=== PATIENT | female | born 1935 | race Caucasian/White ===

== ENCOUNTER 2017-08-16 12:39 | Inpatient (IN) | payer MEDICARE, OTHER ==
[2017-08-16] VITALS: BP 125/69
[~2017-08-16] VITALS: Ht 157.5 cm; Wt 59.0 kg
[~2017-08-16 12:39] MED LIST: ATOR10TA PO; CYAN10006 IM; LEVO75TA7 PO; MECL12.584 PO; METO5TAB98 PO; MIDO5TAB PO; NITR100C11 PO; RIVA20TA PO; VERA180T7 PO
[2017-08-16] MEDS ORDERED: normal saline 1000ml 1,000 ML IV ONE (12:45)
[2017-08-16 13:17] LABS: BASOPHILS % (AUTO) 0.2 % (0-1); EOSINOPHILS # (AUTO) 0.1 X10'3 (0-0.9); EOSINOPHILS % (AUTO) 1.1 % (0-6); HEMATOCRIT 33.9 % (35.0-45.0); HEMOGLOBIN 11.6 g/dl (12.0-16.0); LYMPHOCYTES # (AUTO) 0.8 X10'3 (1.1-4.8); LYMPHOCYTES % (AUTO) 11.7 % (21-51); MEAN CORPUSCULAR HEMOGLOBIN 29.3 PG (27.0-31.0); MEAN CORPUSCULAR HGB CONC 34.2 % (33.0-36.5); MEAN CORPUSCULAR VOLUME 85.4 FL (78-98); MEAN PLATELET VOLUME 9.9 FL (7.4-10.4); MONOCYTES # (AUTO) 0.5 X10'3 (0-0.9); MONOCYTES % (AUTO) 8.4 % (2-12); NEUTROPHILS # (AUTO) 5.1 X10'3 (1.8-7.7); NEUTROPHILS % (AUTO) 78.6 % (42-75); PLATELET COUNT 203 X10'3 (140-440); RED BLOOD COUNT 3.97 X10'6 (4.20-5.60); RED CELL DISTRIBUTION WIDTH 14.4 % (11.5-14.5); WHITE BLOOD COUNT 6.5 X10'3 (4.5-11.0)
[2017-08-16 13:27] LABS: INR 1.5 INR; PARTIAL THROMBOPLASTIN TIME 34 SECONDS (22-32); PROTHROMBIN TIME 15.4 SECONDS (9.0-12.0)
[2017-08-16 13:43] LABS: ALANINE AMINOTRANSFERASE 200 U/L (12-78); ALBUMIN 3.4 G/DL (3.4-5.0); ALBUMIN/GLOBULIN RATIO 1.1 (1.1-1.5); ALKALINE PHOSPHATASE 95 IU/L (46-116); ANION GAP 11 (8-16); ASPARTATE AMINO TRANSFERASE 260 U/L (10-37); BILIRUBIN,TOTAL 1.3 MG/DL (0.1-1.0); BLOOD UREA NITROGEN 20 MG/DL (7-18); BUN/CREATININE RATIO 13.2 (6.6-38.0); CALCIUM 8.6 MG/DL (8.5-10.1); CHLORIDE 105 MMOL/L (99-107); CREATININE 1.51 MG/DL (0.40-0.90); GLUCOSE 140 MG/DL (70-104); MAGNESIUM 1.8 MG/DL (1.5-2.4); PHOSPHORUS 4.7 MG/DL (2.3-4.5); POTASSIUM 4.7 MMOL/L (3.5-5.1); SODIUM 141 MMOL/L (135-145); TOTAL CARBON DIOXIDE 25.4 MMOL/L (24-32); TOTAL PROTEIN 6.5 G/DL (6.4-8.2); eGFR 33 ML/MIN
[2017-08-16] MEDS ORDERED: ondansetron/PF 4mg/2ml inj IV ONE (15:50)
[2017-08-16 17:01] LABS: LACTATE DEHYDROGENASE 368 U/L (81-234); LIPASE 76 U/L (73-393)
[2017-08-16] MEDS ORDERED: RIVA20TA PO (18:56)
[2017-08-16] MEDS ORDERED: OMEP40CA37 PO (18:56)
[2017-08-16] MEDS ORDERED: METO-292 PO (18:56)
[2017-08-16] MEDS ORDERED: ZOL50T PO (18:56)
[2017-08-16] MEDS ORDERED: magnesium 4gm in 100ml NS 100 ML IV PRN (20:40)
[2017-08-16] MEDS ORDERED: potassium Cl 20 mEq SR tablet PO PRN ×2 (20:40)
[2017-08-16] MEDS ORDERED: potassium Cl 40MEQ/NS 500ml 500 ML IV PRN ×2 (20:40)
[2017-08-16] MEDS ORDERED: magnesium hydroxide 30ml (MOM) UD suspension PO PRN (20:40)
[2017-08-16] MEDS ORDERED: HYDROmorphone inj. 0.5 MG/0.5 ML DISP.SYRIN IV PRN ×2 (20:40)
[2017-08-16] MEDS ORDERED: magnesium Cl slow-release 64mg tablet PO PRN (20:40)
[2017-08-16] MEDS ORDERED: magnesium 2GM in 50ml NS 50 ML IV PRN (20:40)
[2017-08-16] MEDS ORDERED: pantoprazole 40 MG vial IV ONE (20:40)
[2017-08-16] MEDS ORDERED: acetaminophen 325mg tablet PO PRN (20:40)
[2017-08-16] MEDS ORDERED: ondansetron/PF 4mg/2ml inj IV PRN (20:40)
[2017-08-16] MEDS ORDERED: mag hydrox/Alum hydrox/simeth 30ml oral suspension PO PRN (20:40)
[2017-08-16] MEDS ORDERED: temazepam 15mg capsule PO PRN (21:00)
[2017-08-16] MEDS: normal saline 1000ml 1,000 ML IV SCH (21:41)
[2017-08-16 22:15] LABS: CLARITY,URINE CLOUDY (Clear); GLUCOSE, URINE NEGATIVE (Neg); KETONES,URINE 15 mg/dl (Neg); LEUKOCYTE ESTERASE ,URINE NEGATIVE (Neg); NITRITES, URINE NEGATIVE (Neg); OCCULT BLOOD,URINE NEGATIVE (Neg); PH,URINE 5.5 (4.8-8.0); PROTEIN,URINE TRACE mg/dl (Neg)
[2017-08-16 22:23] LABS: UA COLLECTION TYPE CLN CATCH MIDSTREAM
[2017-08-16 22:25] LABS: COLOR,URINE DARK YELLOW (Yellow)
[2017-08-16 22:26] LABS: AMORPHOUS URATES 1+; BACTERIA,URINE FEW /HPF (Neg); HYALINE CASTS >30 /LPF (NEGATIVE); MUCUS STRANDS MANY /LPF (Neg); RBC,URINE NONE SEEN /HPF (0-2); RENAL CELLS, URINE FEW /HPF; SQUAMOUS EPITHELIAL CELL,UR FEW /LPF (FEW); TRANSITIONAL EPI CELLS,URINE MANY /HPF
[2017-08-17] VITALS: BP 125/69
[2017-08-17 05:07] LABS: BASOPHILS % (AUTO) 0.4 % (0-1); EOSINOPHILS # (AUTO) 0.1 X10'3 (0-0.9); EOSINOPHILS % (AUTO) 0.8 % (0-6); HEMOGLOBIN 11.2 g/dl (12.0-16.0); LYMPHOCYTES # (AUTO) 1.5 X10'3 (1.1-4.8); LYMPHOCYTES % (AUTO) 20.5 % (21-51); MEAN CORPUSCULAR HEMOGLOBIN 28.9 PG (27.0-31.0); MEAN CORPUSCULAR VOLUME 85.1 FL (78-98); MEAN PLATELET VOLUME 10.1 FL (7.4-10.4); MONOCYTES # (AUTO) 0.9 X10'3 (0-0.9); MONOCYTES % (AUTO) 12.3 % (2-12); NEUTROPHILS # (AUTO) 4.9 X10'3 (1.8-7.7); PLATELET COUNT 203 X10'3 (140-440); RED BLOOD COUNT 3.88 X10'6 (4.20-5.60); RED CELL DISTRIBUTION WIDTH 14.4 % (11.5-14.5); WHITE BLOOD COUNT 7.4 X10'3 (4.5-11.0)
[2017-08-17 05:23] LABS: ALANINE AMINOTRANSFERASE 255 U/L (12-78); ALBUMIN 3.4 G/DL (3.4-5.0); ALBUMIN/GLOBULIN RATIO 1.1 (1.1-1.5); ALKALINE PHOSPHATASE 110 IU/L (46-116); ANION GAP 11 (8-16); ASPARTATE AMINO TRANSFERASE 222 U/L (10-37); BILIRUBIN,TOTAL 1.9 MG/DL (0.1-1.0); BLOOD UREA NITROGEN 24 MG/DL (7-18); BUN/CREATININE RATIO 19.5 (6.6-38.0); CALCIUM 8.6 MG/DL (8.5-10.1); CHLORIDE 107 MMOL/L (99-107); CHOL/HDL RATIO 3.3 (0.00-4.99); CHOLESTEROL 136 MG/DL (0-200); CREATININE 1.23 MG/DL (0.40-0.90); GLUCOSE 99 MG/DL (70-104); HDL CHOLESTEROL 41 MG/DL (35-60); LDL CHOLESTEROL 74 MG/DL (50-100); MAGNESIUM 1.8 MG/DL (1.5-2.4); POTASSIUM 4.3 MMOL/L (3.5-5.1); SODIUM 143 MMOL/L (135-145); TOTAL CARBON DIOXIDE 25.3 MMOL/L (24-32); TOTAL PROTEIN 6.4 G/DL (6.4-8.2); TRIGLYCERIDES 100 MG/DL (20-135); eGFR 42 ML/MIN
[2017-08-17 06:59] VITALS: BP 129/73
[2017-08-17] MEDS ORDERED: atorvastatin 10mg tablet PO SCH (08:00)
[2017-08-17] MEDS: K and/or MAG REPLACEMENT MC SCH (08:00)
[2017-08-17] MEDS ORDERED: CARV-50 PO (08:10)
[2017-08-17 11:00] VITALS: BP 142/72
[2017-08-17] MEDS: levoTHYROXINE 75mcg tablet PO SCH (11:06)
[2017-08-17] MEDS: rivaroxaban 20mg tablet PO SCH (11:07)
[2017-08-17] MEDS: sertraline 25mg tablet PO SCH (11:07)
[2017-08-17] MEDS: normal saline 1000ml 1,000 ML IV SCH (14:09)
[2017-08-17] MEDS: carvedilol 6.25mg tablet PO SCH (14:11)
[2017-08-17 19:15] VITALS: BP 98/57
[2017-08-17 23:50] VITALS: BP 121/73
[2017-08-18 05:02] LABS: BASOPHILS % (AUTO) 0.4 % (0-1); EOSINOPHILS # (AUTO) 0.2 X10'3 (0-0.9); EOSINOPHILS % (AUTO) 2.2 % (0-6); HEMATOCRIT 32.4 % (35.0-45.0); LYMPHOCYTES # (AUTO) 1.3 X10'3 (1.1-4.8); LYMPHOCYTES % (AUTO) 14.1 % (21-51); MEAN CORPUSCULAR HEMOGLOBIN 29.2 PG (27.0-31.0); MEAN CORPUSCULAR VOLUME 85.8 FL (78-98); MONOCYTES % (AUTO) 10.9 % (2-12); NEUTROPHILS # (AUTO) 6.5 X10'3 (1.8-7.7); NEUTROPHILS % (AUTO) 72.4 % (42-75); PLATELET COUNT 186 X10'3 (140-440); RED BLOOD COUNT 3.77 X10'6 (4.20-5.60); RED CELL DISTRIBUTION WIDTH 14.6 % (11.5-14.5)
[2017-08-18 05:20] LABS: ALANINE AMINOTRANSFERASE 183 U/L (12-78); ALBUMIN 3.5 G/DL (3.4-5.0); ALBUMIN/GLOBULIN RATIO 1.3 (1.1-1.5); ALKALINE PHOSPHATASE 100 IU/L (46-116); ANION GAP 9 (8-16); ASPARTATE AMINO TRANSFERASE 110 U/L (10-37); BILIRUBIN,TOTAL 1.5 MG/DL (0.1-1.0); BLOOD UREA NITROGEN 15 MG/DL (7-18); BUN/CREATININE RATIO 16.1 (6.6-38.0); CALCIUM 8.3 MG/DL (8.5-10.1); CHLORIDE 107 MMOL/L (99-107); CREATININE 0.93 MG/DL (0.40-0.90); GLUCOSE 89 MG/DL (70-104); MAGNESIUM 1.7 MG/DL (1.5-2.4); POTASSIUM 3.8 MMOL/L (3.5-5.1); SODIUM 141 MMOL/L (135-145); TOTAL CARBON DIOXIDE 25.5 MMOL/L (24-32); TOTAL PROTEIN 6.3 G/DL (6.4-8.2); eGFR 57 ML/MIN
[2017-08-18 07:00] VITALS: BP 115/67
[2017-08-18] MEDS: K and/or MAG REPLACEMENT MC SCH (08:00)
[2017-08-18] MEDS: levoTHYROXINE 75mcg tablet PO SCH (10:14)
[2017-08-18] MEDS: rivaroxaban 20mg tablet PO SCH (10:14)
[2017-08-18] MEDS: sertraline 25mg tablet PO SCH (10:15)
[2017-08-18] MEDS: carvedilol 6.25mg tablet PO SCH (10:15)
[2017-08-18 11:00] VITALS: BP_SYST 128; BP_DIAS 38; BP_DIAS 58
[2017-08-18] MEDS ORDERED: CARV6.253 PO (11:47)
== END 2017-08-18 17:32 | disposition home or self-care (01) | DRG 918 ==
LOC: ER 12:39 → ED HOLD 20:37 → SUR 3N 22:30
PROVIDERS: ADMIT Internal Medicine; ATTEND Internal Medicine
PROC: CF241ZZ Tomographic (Tomo) Nuclear Medicine Imaging of Gallbladder using Technetium 99m (Tc-99m) (ICD-10-PCS; principal; 2017-08-17)
DX: T50.901A Poisoning by unspecified drugs, medicaments and biological substances, accidental (unintentional), initial encounter (principal); N17.9 Acute kidney failure, unspecified; E87.2 Acidosis; D68.9 Coagulation defect, unspecified; E83.39 Other disorders of phosphorus metabolism; I13.0 Hypertensive heart and chronic kidney disease with heart failure and stage 1 through stage 4 chronic kidney disease, or unspecified chronic kidney disease; I50.9 Heart failure, unspecified; I48.91 Unspecified atrial fibrillation; R55 Syncope and collapse; D64.9 Anemia, unspecified; R74.0 Nonspecific elevation of levels of transaminase and lactic acid dehydrogenase [LDH]; E78.5 Hyperlipidemia, unspecified; E03.9 Hypothyroidism, unspecified; K57.90 Diverticulosis of intestine, part unspecified, without perforation or abscess without bleeding; N18.9 Chronic kidney disease, unspecified; Z90.49 Acquired absence of other specified parts of digestive tract; Z90.710 Acquired absence of both cervix and uterus; Z95.0 Presence of cardiac pacemaker; Z79.01 Long term (current) use of anticoagulants; Z88.5 Allergy status to narcotic agent; Z88.8 Allergy status to other drugs, medicaments and biological substances; Z86.73 Personal history of transient ischemic attack (TIA), and cerebral infarction without residual deficits
CPT/HCPCS: 36415; 71045; 74176; 76700; 78226; 80053; 80061; 81001; 83605; 83615; 83690; 83735; 83880; 84100; 84443; 84484; 85025; 85610; 85730; 87070; 87088; 93005; 96361; 96374; 96375; 97116; 97161; 97530; 99285; A9537; C9113; J2405; J7030; J8597

== ENCOUNTER 2019-05-19 15:26 | Emergency (ER) | payer MEDICARE, OTHER ==
[~2019-05-19] VITALS: Ht 167.6 cm; Wt 61.0 kg
[~2019-05-19 15:26] MED LIST changes: -ATOR10TA PO; +CARV6.253 PO; +METO-292 PO; -METO5TAB98 PO; -MIDO5TAB PO; -NITR100C11 PO; +OMEP40CA13 PO; +SERT-153 PO; -VERA180T7 PO
--- NOTE | 2019-05-19 16:23 | NUR ---
PT TO XRAY
--- NOTE | 2019-05-19 16:27 | NUR ---
PT BACK FROM CT
[2019-05-19 17:44] LABS: CLARITY,URINE SLIGHTLY CLOUDY (Clear); COLOR,URINE STRAW (Yellow); GLUCOSE, URINE NEGATIVE (Neg); KETONES,URINE NEGATIVE (Neg); LEUKOCYTE ESTERASE ,URINE TRACE (Neg); NITRITES, URINE POSITIVE (Neg); OCCULT BLOOD,URINE TRACE-INTACT (Neg); PROTEIN,URINE NEGATIVE (Neg); UROBILINOGEN,URINE 0.2 E.U/dL (0.2-1.0)
[2019-05-19 17:45] LABS: UA COLLECTION TYPE STRAIGHT CATH
[2019-05-19 17:50] LABS: MUCUS STRANDS NONE SEEN /LPF (Neg); SQUAMOUS EPITHELIAL CELL,UR FEW /LPF (FEW); TRANSITIONAL EPI CELLS,URINE FEW /HPF
[2019-05-19 17:52] LABS: BACTERIA,URINE 4+ /HPF (Neg); RBC,URINE 0-2 /HPF (0-2)
[2019-05-19] MEDS ORDERED: CEPH250T PO (17:58)
--- NOTE | 2019-05-19 18:30 | NUR ---
tammie diaz talking with pt prior to dc. pt with stable vs. FAMILY AT BEDSIDE FOR DC INISTRUCTIONS. PT PROVIDED WC ASSIST FOR DC. FAMILY WITH NO FURTHER QUESTIONS AT TIME OF DC. PT CONTINUES TO HAVE PAIN TO HER RIGHT ARM/BURISE AREA.
[2019-05-19 18:31] VITALS: BP 146/68
== END 2019-05-19 18:33 | disposition home or self-care (01) ==
LOC: ER 15:26
DX: S70.01XA Contusion of right hip, initial encounter (principal); S50.811A Abrasion of right forearm, initial encounter; F03.90 Unspecified dementia, unspecified severity, without behavioral disturbance, psychotic disturbance, mood disturbance, and anxiety; N39.0 Urinary tract infection, site not specified; I48.91 Unspecified atrial fibrillation; I11.0 Hypertensive heart disease with heart failure; I50.9 Heart failure, unspecified; Z86.73 Personal history of transient ischemic attack (TIA), and cerebral infarction without residual deficits; Z95.0 Presence of cardiac pacemaker; Z88.5 Allergy status to narcotic agent; Z88.8 Allergy status to other drugs, medicaments and biological substances; Z79.899 Other long term (current) drug therapy; W18.30XA Fall on same level, unspecified, initial encounter; Y93.89 Activity, other specified; Y92.89 Other specified places as the place of occurrence of the external cause; Y99.9 Unspecified external cause status
CPT/HCPCS: 70450; 73502; 81001; 87077; 87088; 87186; 99284